=== PATIENT | female | born 1940 | race Caucasian/White ===

== ENCOUNTER 2017-12-04 18:12 | Emergency (ER) | payer OTHER ==
[~2017-12-04] VITALS: Ht 167.6 cm; Wt 73.5 kg
[~2017-12-04 18:12] MED LIST: NEURONTIN300 MG
== END 2017-12-04 21:55 | disposition home or self-care (01) ==
LOC: ER 18:12
DX: H10.89 Other conjunctivitis (principal)

== ENCOUNTER 2018-05-30 18:40 | Emergency (ER) | payer OTHER ==
[~2018-05-30] VITALS: Ht 165.1 cm; Wt 70.3 kg
== END 2018-05-30 23:37 | disposition home or self-care (01) ==
LOC: ER 18:40
DX: K29.60 Other gastritis without bleeding (principal); R42 Dizziness and giddiness

== ENCOUNTER 2022-11-26 15:27 | Outpatient (CLI) | payer OTHER | END 2022-11-26 15:39 | disposition home or self-care (01) | LOC: RAD 15:27 | PROVIDERS: ATTEND Internal Medicine Geriatric Medicine | DX: U09.9 Post COVID-19 condition, unspecified (principal) ==

== ENCOUNTER 2023-08-04 16:02 | Outpatient (CLI) | payer OTHER | END 2023-08-04 16:09 | disposition home or self-care (01) | LOC: RAD 16:02 | PROVIDERS: ATTEND Internal Medicine Geriatric Medicine | DX: M54.50 Low back pain, unspecified (principal); M53.3 Sacrococcygeal disorders, not elsewhere classified; W13.3XXA Fall through floor, initial encounter ==

== ENCOUNTER 2023-08-12 09:50 | Outpatient (CLI) | payer OTHER | END 2023-08-12 09:51 | disposition home or self-care (01) | LOC: NUCLEAR 09:50 | PROVIDERS: ATTEND Internal Medicine Geriatric Medicine | DX: I50.9 Heart failure, unspecified (principal) ==

== ENCOUNTER 2023-08-19 07:27 | Outpatient (CLI) | payer OTHER | END 2023-08-19 07:31 | disposition home or self-care (01) | LOC: SONOGRAMA 07:27 | PROVIDERS: ATTEND Internal Medicine Geriatric Medicine | DX: K80.80 Other cholelithiasis without obstruction (principal); R10.9 Unspecified abdominal pain; N28.1 Cyst of kidney, acquired ==

== ENCOUNTER 2023-12-08 18:25 | Emergency (ER) | payer OTHER ==
[~2023-12-08] VITALS: Ht 165.1 cm; Wt 71.7 kg
[2023-12-08] MEDS ORDERED: GABAPENTIN300 M2 PO (18:37)
[2023-12-08] MEDS ORDERED: VENLAFAXINE HC150 MG PO (18:37)
[2023-12-08] MEDS ORDERED: ATORVASTATIN CA10 MG PO (18:37)
[2023-12-08 21:19] LABS: HEMATOCRIT 39.4 % (36.0-45.00); MEAN CELL VOLUME 89.9 fL (80.00-100.00); MEAN CORPUSCULAR HEMOGLOBIN 29.7 pg (27.00-32.0); PLATELET COUNT 198 K/uL (150-450); RED BLOOD COUNT 4.38 M/uL (4.00-6.00); RED CELL DISTRIBUTION WIDTH 13.2 % (11.5-14.5)
[2023-12-08 21:37] LABS: INR 0.97; PARTIAL THROMBOPLASTIN TIME 28.5 SECONDS (22.0-34.0); PROTHROMBIN TIME 10.2 SECONDS (9.0-11.5)
[2023-12-08 21:41] LABS: ALBUMIN 3.4 gm/dL (3.4-5.0); BILIRUBIN TOTAL 0.29 mg/dL (0.3-1.2); CALCIUM 8.9 mg/dL (8.5-10.1); CREATININE SERUM 1.27 mg/dL (0.55-1.02); GFR 39.99; GLOBULINA 3.4 G/DL (2.4-3.5); POTASSIUM 4.22 mEq/L (3.5-5.1); TOTAL PROTEIN 6.8 gm/dL (6.4-8.2)
[2023-12-08 21:49] LABS: ERYTHROCYTE SEDIMENTATION RATE 14 mm/hr
[2023-12-08 23:12] LABS: URINE APPEARANCE Clear; URINE BILIRRUBIN Negative (NEGATIVE); URINE BLOOD Negative; URINE COLOR Yellow; URINE GLUCOSE Negative (NEGATIVE); URINE LEUKOCYTE Small; URINE NITRATE Negative; URINE PROTEIN Negative (NEGATIVE); URINE UROBILINOGEN 0.2 E.U./dl
[2023-12-08 23:16] LABS: URINE BACTERIA 65.5 uL (0.0-1933); URINE EPITHELIAL CELLS 4.3 uL (0.0-38.8); URINE RBC 9.7 uL (0.0-20.8); URINE WBC 50.8 uL (0.0-23.2)
== END 2023-12-09 14:27 | disposition home or self-care (01) ==
LOC: ER 18:25
DX: R60.0 Localized edema (principal)

== ENCOUNTER 2024-02-17 10:00 | Outpatient (CLI) | payer OTHER ==
[~2024-02-17 10:00] MED LIST changes: +ATORVASTATIN CA10 MG PO; +GABAPENTIN300 M2 PO; +VENLAFAXINE HC150 MG PO
== END 2024-02-17 10:01 | disposition home or self-care (01) ==
LOC: NUCLEAR 10:00
PROVIDERS: ATTEND Internal Medicine Geriatric Medicine
DX: I11.9 Hypertensive heart disease without heart failure (principal); N18.30 Chronic kidney disease, stage 3 unspecified

== ENCOUNTER 2025-03-01 15:38 | Outpatient (CLI) | payer OTHER ==
[~2025-03-01 15:38] MED LIST changes: +DICLOFENAC POTA50 MG PO
== END 2025-03-01 15:43 | disposition home or self-care (01) ==
LOC: RAD 15:38
PROVIDERS: ATTEND Physical Medicine & Rehabilitation
DX: M54.50 Low back pain, unspecified (principal); M25.561 Pain in right knee; M19.90 Unspecified osteoarthritis, unspecified site